=== PATIENT | male | born 1990 | race Caucasian/White ===

== ENCOUNTER 2021-10-02 22:54 | Emergency (ER) | payer SELFPAY ==
[~2021-10-02] VITALS: Ht 175.3 cm; Wt 97.5 kg
[2021-10-02 22:54] VITALS: BP 103/73
--- NOTE | 2021-10-02 23:00 | NUR ---
PT BETH ALS. TAKEN TO BED 4
--- NOTE | 2021-10-03 00:15 | NUR ---
BIBA WITH C/O ALLERGIC REACTIONS WITH DIFF OF BREATHING, WHEEZING, HIVES ALL OVER HIS BODY, BENADRYL 50 MG IM, BREATHING TREATMENT WAS GIVEN
--- NOTE | 2021-10-03 00:15 | NUR ---
Dr. Carreno examining patient.
[2021-10-03] MEDS ORDERED: PRED20TA5 PO (00:30)
[2021-10-03] MEDS ORDERED: OMEP40EC24 PO (00:30)
[2021-10-03] MEDS ORDERED: DIPH25TA53 PO (00:30)
--- NOTE | 2021-10-03 00:30 | NUR ---
PT STATES HE IS FEELING BETTER
--- NOTE | 2021-10-03 00:40 | NUR ---
Patient discharged with v/s stable. Written and verbal after care instructions given and explained. Patient verbalized understanding. Ambulatory with steady gait. All questions addressed prior to discharge. Advised to follow up with PMD.
[2021-10-03 01:45] VITALS: BP 103/73
== END 2021-10-03 00:40 | disposition home or self-care (01) ==
LOC: MED 22:54
DX: T78.40XA Allergy, unspecified, initial encounter (principal); X58.XXXA Exposure to other specified factors, initial encounter; F17.200 Nicotine dependence, unspecified, uncomplicated; Z72.89 Other problems related to lifestyle
CPT/HCPCS: 99283